=== PATIENT | female | born 1955 | race Caucasian/White ===

== ENCOUNTER 2019-01-06 11:09 | Inpatient (IN) | payer OTHER ==
[~2019-01-06] VITALS: Ht 160 cm; Wt 13.2 kg
[2019-01-06 11:48] LABS: PARTIAL THROMBOPLASTIN TIME 29 SECONDS (22-32)
[2019-01-06 11:51] LABS: ALANINE AMINOTRANSFERASE 115 U/L (12-78); ALBUMIN 3.8 G/DL (3.4-5.0); ALBUMIN/GLOBULIN RATIO 0.9 (1.1-1.5); ALKALINE PHOSPHATASE 153 IU/L (46-116); ANION GAP 10 (8-16); ASPARTATE AMINO TRANSFERASE 40 U/L (10-37); BILIRUBIN,TOTAL 1.1 MG/DL (0.1-1.0); BLOOD UREA NITROGEN 18 MG/DL (7-18); BUN/CREATININE RATIO 11.6 (6.6-38.0); CALCIUM 9.4 MG/DL (8.5-10.1); CHLORIDE 103 MMOL/L (99-107); CREATININE 1.55 MG/DL (0.40-0.90); GLUCOSE 122 MG/DL (70-104); POTASSIUM 3.5 MMOL/L (3.5-5.1); SODIUM 140 MMOL/L (135-145); TOTAL CARBON DIOXIDE 26.7 MMOL/L (24-32); TOTAL PROTEIN 8.1 G/DL (6.4-8.2); eGFR 34 ML/MIN
[2019-01-06 11:51] LABS: URINE AMPHETAMINE SCREEN NEGATIVE (Neg); URINE BARBITUATE SCREEN NEGATIVE (Neg); URINE BENZODIAZEPINES SCREEN NEGATIVE (Neg); URINE CANNABINOID SCREEN POSITIVE (Neg); URINE COCAINE SCREEN NEGATIVE (Neg); URINE METHADONE SCREEN NEGATIVE (Neg); URINE OPIATE SCREEN NEGATIVE (Neg); URINE PHENCYCLIDINE SCREEN NEGATIVE (Neg)
[2019-01-06 11:54] LABS: TROPONIN I < 0.04 NG/ML (0.0-0.05)
[2019-01-06 12:06] LABS: BASOPHILS # (AUTO) 0.1 X10'3 (0-0.2); BASOPHILS % (AUTO) 0.8 % (0-1); EOSINOPHILS # (AUTO) 0.3 X10'3 (0-0.9); EOSINOPHILS % (AUTO) 2.7 % (0-6); HEMATOCRIT 45.9 % (35.0-45.0); HEMOGLOBIN 16.2 g/dl (12.0-16.0); LYMPHOCYTES # (AUTO) 3.1 X10'3 (1.1-4.8); LYMPHOCYTES % (AUTO) 32.6 % (21-51); MEAN CORPUSCULAR HEMOGLOBIN 30.5 PG (27.0-31.0); MEAN CORPUSCULAR HGB CONC 35.2 g/dL (33.0-36.5); MEAN CORPUSCULAR VOLUME 86.6 FL (78-98); MEAN PLATELET VOLUME 9.1 FL (7.4-10.4); MONOCYTES # (AUTO) 0.7 X10'3 (0-0.9); MONOCYTES % (AUTO) 7.9 % (2-12); NEUTROPHILS # (AUTO) 5.3 X10'3 (1.8-7.7); RED BLOOD COUNT 5.3 X10'6 (4.20-5.60); RED CELL DISTRIBUTION WIDTH 14.1 % (11.5-14.5); WHITE BLOOD COUNT 9.4 X10'3 (4.5-11.0)
[2019-01-06] MEDS ORDERED: aspirin 325mg tablet PO ONE (12:10)
--- NOTE | 2019-01-06 12:14 | NUR ---
mendy sugar checked 117 ,as order by dr weber.
[2019-01-06 12:21] LABS: ETHANOL < 0.010 GM/DL (0.0-0.010)
[2019-01-06] MEDS ORDERED: ondansetron/PF 4mg/2ml inj IV PRN (12:35)
[2019-01-06] MEDS ORDERED: mag hydrox/Alum hydrox/simeth 30ml oral suspension PO PRN (12:35)
[2019-01-06] MEDS ORDERED: magnesium hydroxide 30ml (MOM) UD suspension PO PRN (12:35)
[2019-01-06] MEDS ORDERED: acetaminophen 325mg tablet PO PRN (12:35)
[2019-01-06 13:17] LABS: CLARITY,URINE SLIGHTLY CLOUDY (Clear); COLOR,URINE YELLOW (Yellow); GLUCOSE, URINE NEGATIVE (Neg); KETONES,URINE NEGATIVE (Neg); LEUKOCYTE ESTERASE ,URINE NEGATIVE (Neg); NITRITES, URINE NEGATIVE (Neg); OCCULT BLOOD,URINE NEGATIVE (Neg); PROTEIN,URINE NEGATIVE (Neg); UROBILINOGEN,URINE 0.2 E.U/dL (0.2-1.0)
[2019-01-06 13:19] LABS: UA COLLECTION TYPE CLN CATCH MIDSTREAM
[2019-01-06 13:25] LABS: BACTERIA,URINE 2+ /HPF (Neg); RBC,URINE 0-2 /HPF (0-2); SQUAMOUS EPITHELIAL CELL,UR FEW /LPF (FEW); WBC,URINE 0-4 /HPF (0-4)
[2019-01-06 13:27] LABS: CHOL/HDL RATIO 4.9 (0.00-4.99); CHOLESTEROL 204 MG/DL (0-200); HDL CHOLESTEROL 42 MG/DL (35-60); LDL CHOLESTEROL 139 MG/DL (50-100); TRIGLYCERIDES 175 MG/DL (20-135)
[2019-01-06] MEDS ORDERED: METO100T7 PO (13:36)
[2019-01-06] MEDS ORDERED: CETI10CA PO (13:36)
[2019-01-06] MEDS ORDERED: NIFE60TA69 PO (13:36)
[2019-01-06] MEDS ORDERED: CRAN1CAP5 PO (13:36)
[2019-01-06] MEDS ORDERED: CINN500C15 PO (13:36)
[2019-01-06] MEDS ORDERED: METF-436 PO (13:36)
[2019-01-06] MEDS ORDERED: VITA-268 PO (13:36)
[2019-01-06 18:00] VITALS: BP 137/61
[2019-01-06] MEDS: metFORMIN 500mg tablet PO SCH (18:10)
[2019-01-06] MEDS: heparin, porcine 5000 units/ml vial SQ SCH (20:02)
[2019-01-06] MEDS: normal saline 1000ml 1,000 ML IV SCH (20:03)
[2019-01-06 22:00] VITALS: BP 133/69
[2019-01-07 02:00] VITALS: BP 148/74
[2019-01-07] MEDS: normal saline 1000ml 1,000 ML IV SCH (03:27)
[2019-01-07 06:00] VITALS: BP 144/60
--- NOTE | 2019-01-07 06:29 | NUR ---
Report given to Osiris BORRERO.
[2019-01-07 06:53] LABS: ALBUMIN 3.1 G/DL (3.4-5.0); ANION GAP 12 (8-16); BLOOD UREA NITROGEN 15 MG/DL (7-18); BUN/CREATININE RATIO 13.8 (6.6-38.0); CALCIUM 8.3 MG/DL (8.5-10.1); CHLORIDE 106 MMOL/L (99-107); CREATININE 1.09 MG/DL (0.40-0.90); GLUCOSE 102 MG/DL (70-104); POTASSIUM 3.3 MMOL/L (3.5-5.1); SODIUM 142 MMOL/L (135-145); TOTAL CARBON DIOXIDE 24.3 MMOL/L (24-32); eGFR 51 ML/MIN
[2019-01-07 07:00] LABS: BASOPHILS # (AUTO) 0.1 X10'3 (0-0.2); BASOPHILS % (AUTO) 0.7 % (0-1); EOSINOPHILS # (AUTO) 0.3 X10'3 (0-0.9); EOSINOPHILS % (AUTO) 3.8 % (0-6); HEMATOCRIT 41.1 % (35.0-45.0); HEMOGLOBIN 14.4 g/dl (12.0-16.0); LYMPHOCYTES # (AUTO) 2.9 X10'3 (1.1-4.8); LYMPHOCYTES % (AUTO) 35.1 % (21-51); MEAN CORPUSCULAR HEMOGLOBIN 30.6 PG (27.0-31.0); MEAN CORPUSCULAR VOLUME 87.3 FL (78-98); MEAN PLATELET VOLUME 9.2 FL (7.4-10.4); MONOCYTES # (AUTO) 0.7 X10'3 (0-0.9); MONOCYTES % (AUTO) 8.7 % (2-12); NEUTROPHILS # (AUTO) 4.3 X10'3 (1.8-7.7); NEUTROPHILS % (AUTO) 51.7 % (42-75); PLATELET COUNT 196 X10'3 (140-440); RED BLOOD COUNT 4.71 X10'6 (4.20-5.60); RED CELL DISTRIBUTION WIDTH 13.8 % (11.5-14.5); WHITE BLOOD COUNT 8.3 X10'3 (4.5-11.0)
[2019-01-07 07:03] LABS: MEAN CORPUSCULAR HGB CONC 35.1 g/dL (33.0-36.5)
[2019-01-07] MEDS: metFORMIN 500mg tablet PO SCH (07:30)
[2019-01-07] MEDS ORDERED: vitamin B comp w/Vit. C tab 1 TAB TABLET PO SCH (08:00)
[2019-01-07] MEDS ORDERED: VIT C PO SCH (08:00)
[2019-01-07] MEDS ORDERED: aspirin 81mg tablet.DR PO SCH (08:00)
[2019-01-07] MEDS ORDERED: CRANBERRY EXTRACT PO SCH (08:00)
[2019-01-07] MEDS ORDERED: non-formulary drug (Cinnamon Bark (Cinnamon) 2 CAP) PO SCH (08:00)
[2019-01-07] MEDS ORDERED: metoprolol succinate 25mg (24-HOUR) SR. Tablet PO SCH (08:00)
[2019-01-07] MEDS ORDERED: NIFEdipine XL 30mg tablet PO SCH (08:00)
[2019-01-07] MEDS ORDERED: cetirizine 10mg tablet PO SCH (08:00)
[2019-01-07 10:00] VITALS: BP 173/67
[2019-01-07] MEDS: heparin, porcine 5000 units/ml vial SQ SCH (10:09)
[2019-01-07] MEDS ORDERED: ASPI81TA52 PO (11:44)
[2019-01-07] MEDS ORDERED: ATOR20TA PO (11:44)
--- NOTE | 2019-01-07 14:15 | NUR ---
pt DC home. All DC documents signed per protocol. pt DC'd w/DC packet. new orders for Lipitor called into [facility], [place], [place]. Stroke packet/education sent home w/pt. VSS, denies pain, SOB, resp distress, N/V, vertigo upon DC. Pt escorted MARLON in WC, accompanied by [facility] staff & spouse. Pt transferred safely into personal vehicle. Pt thanked [facility] staff for her care.
== END 2019-01-07 15:00 | disposition home or self-care (01) | DRG 66 ==
LOC: ER 11:09 → ORTHO 4S 14:27 → CMPBEDREQ 19:34
PROVIDERS: ADMIT Family Medicine; ATTEND Family Medicine
DX: I63.9 Cerebral infarction, unspecified (principal); E78.00 Pure hypercholesterolemia, unspecified; I12.9 Hypertensive chronic kidney disease with stage 1 through stage 4 chronic kidney disease, or unspecified chronic kidney disease; E11.22 Type 2 diabetes mellitus with diabetic chronic kidney disease; N18.9 Chronic kidney disease, unspecified; E78.5 Hyperlipidemia, unspecified; R74.0 Nonspecific elevation of levels of transaminase and lactic acid dehydrogenase [LDH]; Z90.710 Acquired absence of both cervix and uterus; Z90.49 Acquired absence of other specified parts of digestive tract; Z82.3 Family history of stroke
CPT/HCPCS: 36415; 70450; 70544; 70551; 71045; 80048; 80053; 80061; 80305; 80320; 81001; 82948; 83036; 84484; 85025; 85610; 85730; 87070; 92508; 93005; 93306; 93880; 97116; 97162; 97530; 99285; G0378; J1644; J7030

== ENCOUNTER 2019-06-12 13:15 | Outpatient (CLI) | payer MEDICAID ==
[~2019-06-12 13:15] MED LIST: ASPI81TA52 PO; ATOR20TA PO; CETI10CA PO; CINN500C15 PO; CRAN1CAP5 PO; METF-436 PO; METO100T7 PO; NIFE60TA69 PO; VITA-268 PO
== END 2019-06-12 23:59 | disposition home or self-care (01) ==
LOC: CARD DIAG 13:15
PROVIDERS: ATTEND Internal Medicine
DX: Z01.818 Encounter for other preprocedural examination (principal); C50.411 Malignant neoplasm of upper-outer quadrant of right female breast; I08.0 Rheumatic disorders of both mitral and aortic valves; I10 Essential (primary) hypertension; E11.9 Type 2 diabetes mellitus without complications; J45.909 Unspecified asthma, uncomplicated; Z90.710 Acquired absence of both cervix and uterus
CPT/HCPCS: 93306